=== PATIENT | male | born 1950 | race Caucasian/White ===

== ENCOUNTER 2021-04-03 11:45 | Outpatient (CLI) | payer OTHER ==
[2021-04-03] MEDS ORDERED: ATOR20TA37 PO (12:23)
[2021-04-03] MEDS ORDERED: GABA300C PO ×2 (12:23)
[2021-04-03] MEDS ORDERED: DULO30CA2 PO (12:23)
[2021-04-03] MEDS ORDERED: VERA120T13 PO (12:23)
[2021-04-03] MEDS ORDERED: FINA5TAB4 PO (12:23)
[2021-04-03] MEDS ORDERED: CYCL10TA2 PO (12:23)
[2021-04-03] MEDS ORDERED: OMEP40CA8 PO (12:23)
[2021-04-03 12:51] LABS: BASOPHILS % (AUTO) 1 % (0-1); EOSINOPHILS % (AUTO) 2 % (1-7); LYMPHOCYTES % (AUTO) 29 % (22-44); MEAN CORPUSCULAR HEMOGLOBIN 30.7 pg (27.5-34.5); MEAN CORPUSCULAR HGB CONC 33.5 g/dL (33.2-36.2); MEAN PLATELET VOLUME 8.9 fL (7.4-10.4); MONOCYTES % (AUTO) 11 % (2-9); NEUTROPHILS % (AUTO) 58 % (42-75); PLATELET COUNT 238 x10^3/uL (130-400); RED BLOOD COUNT 5.16 x10^6/uL (4.38-5.82); RED CELL DISTRIBUTION WIDTH 15.5 % (9.4-14.8)
[2021-04-03 12:53] LABS: MICROSCOPIC NOT IND
[2021-04-03 13:02] LABS: INTERNATIONAL NORMALIZED RATIO 0.93 (0.93-1.1); PROTHROMBIN TIME 9.9 Seconds (9.6-11.5)
[2021-04-03 13:48] LABS: ALANINE AMINOTRANSFERASE 30 U/L (12-78); ALBUMIN 3.7 g/dL (3.4-5.0); ANION GAP 6 mmol/L (5-15); CALCIUM 9.1 mg/dL (8.5-10.1); CHLORIDE 107 mmol/L (98-107)
[2021-04-03 13:52] LABS: ALKALINE PHOSPHATASE 63 U/L (45-117); BILIRUBIN,TOTAL 0.5 mg/dL (0.2-1.0); CREATININE 1.05 mg/dL (0.7-1.3); TOTAL PROTEIN 7.7 g/dL (6.4-8.2)
== END 2021-04-03 23:59 | disposition home or self-care (01) ==
LOC: STAR 11:45
PROVIDERS: ATTEND Urology
DX: Z01.818 Encounter for other preprocedural examination (principal); C61 Malignant neoplasm of prostate; I45.10 Unspecified right bundle-branch block
CPT/HCPCS: 36415; 80053; 81003; 83036; 85025; 85610; 87086; 93005

== ENCOUNTER → 2021-04-12 | Outpatient (CLI) | payer OTHER ==
[~2021-04-12] MED LIST: ATOR20TA37 PO; CYCL10TA2 PO; DULO30CA2 PO; FINA5TAB4 PO; GABA300C PO; OMEP40CA8 PO; VERA120T13 PO
== END | disposition home or self-care (01) ==
LOC: STAR 10:26
PROVIDERS: ATTEND Urology
DX: Z01.812 Encounter for preprocedural laboratory examination (principal); Z20.822 Contact with and (suspected) exposure to COVID-19
CPT/HCPCS: 36415; 87635

== ENCOUNTER 2021-04-17 05:48 | Inpatient (IN) | payer OTHER ==
[~2021-04-17] VITALS: Ht 182.9 cm; Wt 87.0 kg
[2021-04-18 14:50] VITALS: BP 138/69
== END 2021-04-18 18:13 | disposition home or self-care (01) | DRG 708 ==
LOC: OUT 05:48 → 4NE 12:20 → OUT 14:32
PROVIDERS: ADMIT Urology; ATTEND Urology
PROC: 0VT04ZZ Resection of Prostate, Percutaneous Endoscopic Approach (ICD-10-PCS; principal; 2021-04-17)
PROC: 07TC4ZZ Resection of Pelvis Lymphatic, Percutaneous Endoscopic Approach (ICD-10-PCS; 2021-04-17)
PROC: 8E0W4CZ Robotic Assisted Procedure of Trunk Region, Percutaneous Endoscopic Approach (ICD-10-PCS; 2021-04-17)
PROC: 0VT34ZZ Resection of Bilateral Seminal Vesicles, Percutaneous Endoscopic Approach (ICD-10-PCS; 2021-04-17)
DX: C61 Malignant neoplasm of prostate (principal)
CPT/HCPCS: 36415; J7121